=== PATIENT | female | born 1965 | race Caucasian/White ===

== ENCOUNTER 2018-06-10 10:11 | Outpatient (CLI) | payer MEDICAID, SELFPAY ==
[2018-06-10 10:51] LABS: Abs Immature Grans 0.03 k/cumm (0.0-0.09); Absolute Basophil Count 0.05 k/cumm (0.0-0.2); Absolute Eosinophil Count 0.12 k/cumm (0.0-0.7); Absolute Monocyte Count 1.05 k/cumm (0.11-0.7); Absolute Neutrophil Count 5.13 k/cumm (1.2-6.7); Basophils % 0.5; Eosinophils % 1.2; HCT 43.2 % (36.0-46.0); HGB 14.8 g/dL (12.0-15.5); Immature Grans % 0.3; Lymphocytes % 36.7; Mean Corp. HGB Concentration 34.3 g/dL (32.0-36.0); Mean Corpuscular Hemoglobin 28.6 pg (27.0-33.0); Mean Corpuscular Volume 83.4 fL (80-95); Mean Platelet Volume 9.8 fL (8.0-11.0); Monocytes % 10.4; Neutrophils % 50.9; Platelet Count 377 x1000/uL (130-400); RBC 5.18 m/cumm (4.00-5.20); RBC Distribution Width 14.8 % (11.7-14.6); White Blood Cell Count 10.08 k/cumm (4.4-10.8)
[2018-06-10 13:12] LABS: Anion Gap 13.1 mmol/L (3-11); BUN 13 mg/dL (7-18); CO2 26.9 mmol/L (21.0-32.0); CREATININE 0.84 mg/dL (0.55-1.02); Calcium 9.5 mg/dL (8.5-10.1); Chloride 100 mmol/L (98-107); Cholesterol 189 mg/dL (50-200); Glucose 67 mg/dL (70-100); HDL Cholesterol 68 mg/dL (40-60); LDL CHOLESTEROL 101 mg/dL (<100); Potassium 3.9 mmol/L (3.5-5.1); Sodium 140 mmol/L (136-145); Triglyceride 52 mg/dL (30-150)
== END 2018-06-10 10:31 ==
PROVIDERS: PCP Nurse Practitioner Family; Visit Provider Nurse Practitioner Family
DX: I10 Essential (primary) hypertension (principal); D72.829 Elevated white blood cell count, unspecified; E78.5 Hyperlipidemia, unspecified
CPT/HCPCS: 36415; 80048; 80061; 83721; 85025

== ENCOUNTER 2018-06-27 01:07 | Outpatient (CLI) | payer MEDICAID, SELFPAY ==
--- NOTE | 2018-06-27 15:00 | DI.MAMMO_ITS ---
SYMPTOM/DIAGNOSIS: SCREENING, Z12.31 MAMMOGRAMS: Mammograms were interpreted according to the usual protocol including computer analysis with CAD system, tomosynthesis and C view imaging. Comparison is made with 2016. The breasts are composed of heterogeneously dense fibroglandular tissue, breast density, Category C. No suspicious masses or suspicious microcalcifications are seen. There has been no significant change. IMPRESSION: Category 1C, negative mammogram. Yearly screening mammography is recommended. [facility] ASSESSMENT OF FINDINGS: Negative. Category 1. Patient will receive a letter notifying them of these results. Bi-RADS category C. The breasts are heterogeneously dense, which may obscure small masses.
== END 2018-06-27 01:27 ==
PROVIDERS: PCP Nurse Practitioner Family; Visit Provider Nurse Practitioner Family
DX: Z12.31 Encounter for screening mammogram for malignant neoplasm of breast (principal)
CPT/HCPCS: 77063; 77067

== ENCOUNTER 2018-12-30 07:00 | Outpatient (REF) | payer MEDICAID, SELFPAY ==
[2019-01-07 11:25] LABS: Fecal Immunochemical Test Negative (Negative)
== END 2018-12-30 07:20 ==
LOC: LBN 07:00
PROVIDERS: PCP Nurse Practitioner Family; Visit Provider Nurse Practitioner Family
DX: E87.6 Hypokalemia (principal); I10 Essential (primary) hypertension; Z12.11 Encounter for screening for malignant neoplasm of colon
CPT/HCPCS: 82274

== ENCOUNTER 2019-06-12 19:30 | Outpatient (REF) | payer MEDICAID, SELFPAY ==
[2019-06-12 19:21] LABS: Abs Immature Grans 0.04 k/cumm (0.0-0.09); Absolute Basophil Count 0.04 k/cumm (0.0-0.2); Absolute Eosinophil Count 0.16 k/cumm (0.0-0.7); Absolute Lymphocyte Count 3.97 k/cumm (1.2-3.4); Absolute Monocyte Count 1.02 k/cumm (0.11-0.7); Basophils % 0.3; Eosinophils % 1.2; HCT 45.7 % (36.0-46.0); HGB 15.8 g/dL (12.0-15.5); Immature Grans % 0.3; Lymphocytes % 30.7; Mean Corp. HGB Concentration 34.6 g/dL (32.0-36.0); Mean Corpuscular Hemoglobin 28.7 pg (27.0-33.0); Mean Corpuscular Volume 82.9 fL (80-95); Mean Platelet Volume 10.3 fL (8.0-11.0); Monocytes % 7.9; Neutrophils % 59.6; Platelet Count 342 x1000/uL (130-400); RBC 5.51 m/cumm (4.00-5.20); RBC Distribution Width 15.2 % (11.7-14.6); White Blood Cell Count 12.93 k/cumm (4.4-10.8)
[2019-06-12 19:23] LABS: C-Reactive Protein 0.58 mg/dL (0.0-0.3)
[2019-06-12 19:38] LABS: Absolute Neutrophil Count 7.71 k/cumm (1.2-6.7)
[2019-06-12 20:42] LABS: ESR 33 mm/hr (0-30)
== END 2019-06-12 19:50 ==
LOC: LBN 19:30
PROVIDERS: PCP Nurse Practitioner Family; Visit Provider Family Medicine
DX: G45.3 Amaurosis fugax (principal)
CPT/HCPCS: 85652; 85025; 86140

== ENCOUNTER 2019-07-03 01:18 | Outpatient (CLI) | payer MEDICAID, SELFPAY ==
--- NOTE | 2019-07-03 12:59 | DI.US_ITS ---
EXAM: US CAROTID CLINICAL HISTORY: Transient loss of vision G45.3 AMAUROSIS FUGAX TECHNIQUE: Ultrasound performed using standard protocol. COMPARISON: No exams were available for comparison FINDINGS: There is minimal calcific plaque in the common carotid bulbs. The velocity measurements obtained wer e within the normal range. There is no visible stenosis. Vertebral arteries show antegrade flow. A 1.2 centimeter hypoechoic nodule is detected in the left thyroid. IMPRESSION: No evidence of significant internal carotid artery stenosis.
== END 2019-07-03 01:38 ==
PROVIDERS: PCP Nurse Practitioner Family; Visit Provider Family Medicine
DX: G45.3 Amaurosis fugax (principal); H53.129 Transient visual loss, unspecified eye; E04.1 Nontoxic single thyroid nodule
CPT/HCPCS: 93880

== ENCOUNTER 2019-07-04 00:48 | Outpatient (CLI) | payer MEDICAID, SELFPAY ==
--- NOTE | 2019-07-04 10:56 | DI.US_ITS ---
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 amaurosis fugax of right eye. G45.3 Amaurosis fugax Conclusion Left Ventricle : The left ventricle is normal size. The left ventricular systolic function is normal. The left ventricular ejection fraction is within the normal range. There is normal left ventricular wall thickness. There is normal LV segmental wall motion. The left ventricular diastolic function is normal. LVEF is estimated to be 60-65%. Right Ventricle : The right ventricle is normal size. The right ventricular systolic function is norm al. Atria : The left atrium size is normal. The right atrium size is normal. Aortic Valve : Aortic valve is trileaflet. There is mild sclerosis without stenosis. No aortic regurg itation is present. Mitral Valve : Mitral valve leaflets are mildly thickened. Mild mitral regurgitation. No evidence of mitral valve stenosis. Tricuspid Valve : Tricuspid valve is not well visualized. There is no tricuspid valve regurgitation n oted. Great Vessels : IVC is normal in size and collapses >50% with inspiration. There is none of tricuspi d regurgitation to estimate RVSP. There is no cardiac source of emboli identified. There is no prior echocardiogram available for comparison. Wall motion Left Ventricle The left ventricle is normal size. The left ventricular systolic function is normal. The left ventric ular ejection fraction is within the normal range. There is normal left ventricular wall thickness. T here is normal LV segmental wall motion. The left ventricular diastolic function is normal. LVEF is e stimated to be 60-65%. Right Ventricle The right ventricle is normal size. The right ventricular systolic function is normal. Atria The left atrium size is normal. The right atrium size is normal. Aortic Valve Aortic valve is trileaflet. There is mild sclerosis without stenosis. No aortic regurgitation is pres ent. Mitral Valve Mitral valve leaflets are mildly thickened. No evidence of mitral valve stenosis. Mild mitral regurgi tation. Tricuspid Valve Tricuspid valve is not well visualized. There is no tricuspid valve regurgitation noted. Pulmonic Valve Pulmonic valve is not well visualized. Great Vessels The aortic root is normal in size. The ascending aorta is normal in size. IVC is normal in size and c ollapses >50% with inspiration. There is none of tricuspid regurgitation to estimate RVSP. Pericardium There is no pericardial effusion. 2D Dimensions IVSd 0.75 cm F: 0.6-1.0 LV EDV A2C 51.50 mL PWd 0.75 cm F: 0.6 - 1.0 LV EDV A4C 41.30 mL LVDd 4.35 cm F: 3.8 - 5.2 LA Volume Index A2C 20.07 mL/m2 LVDs 2.90 cm F: 2.2 - 3.5 LA Volume Index A4C 14.08 mL/m2 Aortic Root 2.40 cm F: 2.7 - 3.3 LA Volume Index Biplane 16.95 mL/m2 RA Area A4C 9.65 cm2 LA Area A4C 10.51 cm2 LVOT 1.75 cm (M/F) 1.5-2.5 LA Area A2C 12.66 cm2 Ascending Aorta 2.78 cm F: 2.3 - 3.1 EF AP4 64.65 % LVEF (Teich) 62.77 % EF AP2 56.89 % LVEF (Cosme's) 60.87 % F: 54 - 74 EF BP 60.87 % LV Volume 41.40 mL F: 46 - 106 LV Volume Index 26.36 mL/m2 F: 29 - 61 FS 33.70 % LV Diastology E/A Ratio 0.9 MED E' 0.13 (>0.07 m/s) LV E/e MED 5.05 (<14) LAT E' 0.10 (>0.1 m/s) LV E/e LAT 6.70 (<14) Aortic Valve LVOT Area 2.50 cm2 LVOT Vmax 1.08 m/s LVOT Mean Ming. 0.70 m/s LVOT Peak Gr. 4.7 mmHg LVOT Mean Gr. 2.3 mmHg AoV Area/ BSA (Vmax) 0.99 cm2/m2 LVOT VTI 0.200 m AoV Vmax 1.74 (0.5-1.3 m/s) ABDIEL Mean Ming. Index 0.95 cm2/m2 AoV Mean Ming. 1.17 m/s AoV Peak Grad 12.0 mmHg AoV Mean Grad 6.1 (<5 mmHg) AoV VTI 0.374 (0.18-0.25 m) AoV Area VTI 1.54 (2.5-4.5 cm2) AoV Area/ BSA (VTI) 0.98 cm/m2 Mitral Valve MV E Max Ming. 0.68 (0.4-1.3 m/s) MV A Velocity 0.75 (0.4-1.3 m/s) E/A Ratio 0.87 MV Decel. Time 199.40 (160-240 msec) MV Regurg Volume 0.00 mL MV PHT 57.83 msec MV RF 0.00 % MVA PHT 3.80 cm2 Pulmonary Valve RVOT Peak Gr. 2.50 mmHg RVOT Peak Ming. 0.79 m/s RVOT Mean Gr. 1.30 mmHg RVOT VTI 0.15 m Tricuspid Valve RAP Estimate 3.00 mmHg RVSP 3.00 mmHg
== END 2019-07-04 01:08 ==
PROVIDERS: PCP Nurse Practitioner Family; Visit Provider Family Medicine
DX: G45.3 Amaurosis fugax (principal); H53.129 Transient visual loss, unspecified eye; I35.8 Other nonrheumatic aortic valve disorders; I10 Essential (primary) hypertension; E78.5 Hyperlipidemia, unspecified
CPT/HCPCS: 93306

== ENCOUNTER 2019-08-19 10:37 | Emergency (ER) | payer MEDICAID, SELFPAY ==
[2019-08-19 10:42] VITALS: BP 133/75; PULSE 96; RESP 16; TEMP 36.4; O2SAT 95
--- NOTE | 2019-08-19 10:46 | ED.GENADUL_ITS ---
Discharge Plan Disposition Patient Disposition: HOME Condition: Improving Discharge Details Chief Complaint: EarProblem Clinical Impression: Cerumen impaction Primary Care Provider: Lindsay Herring ED Provider: Atilio Williamson Home Meds and New Rx's Prescriptions: Continued hydrochlorothiazide 12.5 mg tablet 12.5 mg PO DAILY Qty: 90 RF: 3 Shingrix (PF) 50 mcg/0.5 mL suspension for reconstitution 50 mcg IM .COMPLEX Qty: 1 RF: 1 primidone 50 mg tablet 50 mg PO HS Qty: 90 RF: 3 topiramate [Topamax] 100 mg tablet 100 mg PO HS Qty: 90 RF: 3 potassium chloride 10 mEq tablet extended release 10 meq PO DAILY Qty: 90 RF: 3 Prilosec OTC 20 mg tablet,delayed release (DR/EC) 20 mg PO DAILY Qty: 90 RF: 3 atorvastatin 20 mg tablet 20 mg PO DAILY Qty: 90 RF: 3 Discharge Instructions Instructions: Cerumen Impaction (ED) Additional Instructions: We will ask our care management team to get you a follow-up appointment with Radha Herring in clinic for recheck. May use [id number] earwax drops to completely evacuate your ears. Continue your regular medications. Return for any acute concern. Medical Decision Making 53-year-old female presents from home complaining of decreased hearing in the right ear for 4 days. Exam reveals a large cerumen impaction. The ear was irrigated with production of cerumen. Patient with persistent diminished hearing of the right ear. Discussed with the patient keeping the ears clean of cerumen and that we will arrange an outpatient follow-up in clinic for recheck of hearing. She has no pain, fever, headache. She is stable and appropriate to discharge to home at this time. HPI General Mode of arrival: ambulatory . Date/Time Provider Initiated Documentation: 08/19/19 10:38 . Limitations to Documentation: no limitations . Information obtained by: patient . History of Present Illness 53 year old F presents to the emergency department with the chief complaint of Right ear cannot hear, described as moderate, and is localized to the head. Patient reports no radiation. Patient started experiencing this day(s) and it has been constant. No relieving factors improve symptom(s), No exacerbating factors reported . Patient notes denies fever/chills. Patient did receive the following treatments prior to arrival, none Related Data Home Medications Medication Instructions Recorded Confirmed potassium chloride 10 mEq 10 meq PO DAILY #90 tab-cap 10/12/18 08/19/19 tablet,extended release hydrochlorothiazide 12.5 mg tablet 12.5 mg PO DAILY #90 tab-cap 12/21/18 08/19/19 varicella-zoster gE-AS01B (PF) 50 50 mcg IM .COMPLEX #1 each 12/21/18 08/19/19 mcg/0.5 mL IM susp, kit omeprazole magnesium 20 mg 20 mg PO DAILY #90 tab-cap 04/05/19 08/19/19 tablet,delayed release primidone 50 mg tablet 50 mg PO HS #90 tab-cap 05/15/19 08/19/19 topiramate 100 mg tablet 100 mg PO HS #90 tab 05/15/19 08/19/19 atorvastatin 20 mg tablet 20 mg PO DAILY #90 tab-cap 05/17/19 08/19/19 Previous Rx's Medication Instructions Recorded potassium chloride 10 mEq 10 meq PO DAILY #90 tab-cap 10/12/18 tablet,extended release hydrochlorothiazide 12.5 mg tablet 12.5 mg PO DAILY #90 tab-cap 12/21/18 varicella-zoster gE-AS01B (PF) 50 50 mcg IM .COMPLEX #1 each 12/21/18 mcg/0.5 mL IM susp, kit omeprazole magnesium 20 mg 20 mg PO DAILY #90 tab-cap 04/05/19 tablet,delayed release primidone 50 mg tablet 50 mg PO HS #90 tab-cap 05/15/19 topiramate 100 mg tablet 100 mg PO HS #90 tab 05/15/19 atorvastatin 20 mg tablet 20 mg PO DAILY #90 tab-cap 05/17/19 Allergies Allergy/AdvReac Type Severity Reaction Status Date / Time ibuprofen Allergy Mild Hives Verified 08/19/19 10:44 sertraline AdvReac Intermediate Nightmares Verified 08/19/19 10:44 General Stated Complaint: EarProblem SHITAL: 4 Review of Systems Narrative: Similar to in the past. No fever or recent illness. [facility] Medical History Abnormal auditory perception of left ear (Chronic 09/10/16) Anxiety (Chronic) ASCUS with positive high risk HPV (Resolved 01/11/17) Chronic daily headache (Chronic 09/15/16) COPD (chronic obstructive pulmonary disease) (Chronic) a. PFTs in 02/2014 showed mild obstructive disease with no significant bronchodilator response Degenerative arthritis of left knee (Chronic 09/26/14) Essential tremor (Chronic 02/19/16) GERD (gastroesophageal reflux disease) (Chronic) HSIL (high grade squamous intraepithelial lesion) on Pap smear of cervix (Chronic 04/10/16) +HPV HTN (hypertension) (Chronic) Hyperlipidemia (Chronic 08/26/01) 05/2018 labs: adequate response in the lipid panel, continue current moderate intensity statin therapy Hypokalemia (Chronic) Chronic K+ supplement Lactose intolerance (Chronic 12/19/13) Migraine headache without aura (Chronic) Moderate dysplasia of cervix (JUSTINO II) (Acute 04/30/16) Pneumothorax (Resolved 10/07/09) Postmenopausal (Chronic) LMP 2009 Resting tremor (Chronic) Tobacco use disorder (Chronic) Social History Smoking/Tobacco Use Status: Current every day Alcohol Intake: never Drug use: Never Caregiver/Support person: No Household members: significant other Housing: apartment Number of Children: 4 Communication Needs: None Pets and animals: Yes Pets and animals: dog(s) and bird(s) Current gender identity: female What type of physical activity do you participate in: none Seatbelt use: always Water heater temp set <120 deg: Yes Working smoke detector in home: Yes Fire extinguisher in home: Yes Carbon monox detector in home: Yes Additional Social history: She lives with her BF and her son Costa. 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 She smokes 1/4 ppd. No ETOH since 2011. No illicit drug use. Exam Narrative Exam Narrative: GEN: awake, alert, oriented 3. Pleasant, well groomed, interactive. HEAD: Normocephalic, atraumatic ENT: Mucous membranes moist, oropharynx unremarkable, right tympanic membrane is occluded by cerumen, external ear exam unremarkable EYES: PERRL, EOMI NECK: Full ROM, no FATUMA, no menigismus Neuro: Grossly normal neurologic exam, conversant, interactive. Psych: Speech fluent, thoughts congruent, affect normal Course Vital Signs Vital signs: Vital Signs Temperature 36.4 C L 08/19/19 10:42 Pulse 96 H 08/19/19 10:42 Respiratory Rate 16 08/19/19 10:42 Blood Pressure 133/75 08/19/19 10:42 Pulse Oximetry 95 08/19/19 10:42 Temperature 36.4 C L 08/19/19 10:42 Temperature Source Skin 08/19/19 10:42 Pulse 96 H 08/19/19 10:42 Respiratory Rate 16 08/19/19 10:42 Respiratory Effort Non-Labored 08/19/19 10:42 Blood Pressure 133/75 08/19/19 10:42 Blood Pressure Position Sitting 08/19/19 10:42 Pulse Oximetry 95 08/19/19 10:42 Oxygen Delivery Method Room Air 08/19/19 10:42 Oxygen Flow Rate 0 08/19/19 10:42 Pain Level 0 08/19/19 10:42
--- NOTE | 2019-08-19 11:29 | NUR.NOTE ---
Nursing Note: Right ear irrigated three times with room temp water till ear canal was clear. PT reports continued hearing difficulty. Pt DC with ENT follow up care to address hearing difficulty.
--- NOTE | 2019-08-19 15:02 | NUR.NOTE ---
Nursing Note: Faxed to PCP for follow up. Radha Guajardo.
== END 2019-08-19 11:35 | disposition home or self-care (01) ==
LOC: ER 11:04
PROVIDERS: Emergency Provider Emergency Medicine; PCP Nurse Practitioner Family
DX: H61.21 Impacted cerumen, right ear (principal); I10 Essential (primary) hypertension; J44.9 Chronic obstructive pulmonary disease, unspecified; F17.210 Nicotine dependence, cigarettes, uncomplicated
CPT/HCPCS: 69209; 99282; 99283

== ENCOUNTER 2019-10-13 13:48 | Outpatient (REF) | payer MEDICAID, SELFPAY ==
--- NOTE | 2019-10-13 13:00 | PAPFT_PTH ---
PATIENT: Ashleigh Paiz LOC: [facility] U#:[id number] AGE/SX: 53/F ROOM: RE10/13/[address]: Jennifer Salmon : 1965 BED: DIS: 10/13/2019 SPEC #: [id number] RECD: 10/13/19 16:35 STATUS: ESTELLA WELSH #: [id number] PINO: 10/13/19 13:[address]: Jennifer Salmon DEPT: [facility] Cytology RECD BY: Kervin Garcia ENTERED: 10/13/19 16:36 SP TYPE: PAPFT OTHR DR: Lindsay Herring, FRANCISCO JAVIER Tissues: 1 - CX/ENDOCX FOR PAP SMEARS Procedures: PAP THIN PREP/[facility] Screening Comments: [id number]
== END 2019-10-13 14:08 ==
LOC: LBN 13:48
PROVIDERS: PCP Nurse Practitioner Family; Visit Provider Obstetrics & Gynecology Gynecology
DX: Z12.4 Encounter for screening for malignant neoplasm of cervix (principal)
CPT/HCPCS: 88142

== ENCOUNTER 2020-01-09 14:29 | Outpatient (CLI) | payer MEDICAID, SELFPAY ==
[2020-01-09 15:54] LABS: Anion Gap 10.9 mmol/L (3-11); BUN 10 mg/dL (7-18); CO2 27.1 mmol/L (21.0-32.0); CREATININE 0.84 mg/dL (0.55-1.02); Calcium 9.5 mg/dL (8.5-10.1); Calculated LDL 119 mg/dL (<100); Chloride 102 mmol/L (98-107); Cholesterol 199 mg/dL (<200); Glucose 80 mg/dL (74-106); HDL Cholesterol 54 mg/dL (40-60); Potassium 3.8 mmol/L (3.5-5.1); Sodium 140 mmol/L (136-145); Triglyceride 133 mg/dL (<150)
== END 2020-01-09 14:49 ==
PROVIDERS: PCP Nurse Practitioner Family; Visit Provider Nurse Practitioner Family
DX: E78.5 Hyperlipidemia, unspecified (principal); I10 Essential (primary) hypertension; E87.6 Hypokalemia
CPT/HCPCS: 36415; 80048; 80061

== ENCOUNTER 2020-08-21 01:11 | Outpatient (CLI) | payer MEDICAID, SELFPAY ==
--- NOTE | 2020-08-21 10:15 | DI.RAD_ITS ---
EXAM: XR CERVICAL SPINE COMP 4-5V CLINICAL HISTORY: Widespread chronic spinal pain suspect fibromyalgia,g89.29. TECHNIQUE: 2D digital imaging was performed. COMPARISON: CR CERVICAL SP. LIMITED (TRAUMA) from 12/14/2016 FINDINGS: There is no evidence of fracture, listhesis, nor offset of the spinal laminar line. All of the disc spaces continue to exhibit normal height and appear unchanged from 2017. There are mild degenerative changes in the facet joints. On the oblique views there are no Luschka joint osteophyte encroachmen t upon the exiting neural foramina. There are no cervical ribs. Mild calcification in the right jonnathan e of the neck is noted which probably indicates atherosclerotic involvement of the carotid artery. The cervical lordotic curve is maintained. No osseous lesions. IMPRESSION: As above. No significant radiographic change compared to 2017. DATA REPOSITORY: RADIATION DOSE DELIVERED:
--- NOTE | 2020-08-21 10:15 | DI.RAD_ITS ---
EXAM: XR LUMBAR SPINE COMPLETE CLINICAL HISTORY: Widespread chronic spinal pain suspect fibromyalgia,m54.9,dorsalgia. TECHNIQUE: 2D digital imaging was performed. COMPARISON: CR XR THORACIC SPINE COMPLETE from 08/21/2020 FINDINGS: There is transitional anatomy. There are 6 non rib bearing vertebrae. This implies presence of a tr ansitional thoracolumbar vertebra. There is no evidence of fracture, listhesis, or pars interarticularis defects. All of the disc space s exhibit normal height. Mild degenerative changes are evident in the facet joints. Is no scoliosis . No ominous osseous lesions. Sacroiliac joints appear unremarkable. There is calcification eviden t in the abdominal aorta and common iliac arteries. IMPRESSION: No fracture. No listhesis. No disc space narrowing. Significant calcification in the abdominal aorta and iliac arteries indicating atherosclerotic involv ement in this 54-year-old patient. DATA REPOSITORY: RADIATION DOSE DELIVERED:
--- NOTE | 2020-08-21 10:15 | DI.RAD_ITS ---
EXAM: XR THORACIC SPINE COMPLETE CLINICAL HISTORY: widepsread chronic spinal pain,suspect fibromyalgia,back pain,m54.9. TECHNIQUE: 2D digital imaging was performed. COMPARISON: CR CHEST 2 VIEWS PA,LAT from 05/17/2017 FINDINGS: There is no evidence of compression fracture nor listhesis in the thoracic spinal column. There is m ild scoliosis convex left in the lower thoracic spinal column. There is no abnormal widening of the paraspinal lines. No ominous osseous lesions evident. IMPRESSION: DATA REPOSITORY: RADIATION DOSE DELIVERED:
== END 2020-08-21 01:12 ==
LOC: DI 01:11
PROVIDERS: PCP Nurse Practitioner Family; Visit Provider Nurse Practitioner Family
DX: M54.2 Cervicalgia (principal); M54.6 Pain in thoracic spine; M54.5 Low back pain; G89.29 Other chronic pain
CPT/HCPCS: 72050; 72072; 72110

== ENCOUNTER 2020-08-30 02:35 | Outpatient (CLI) | payer MEDICAID, SELFPAY ==
[2020-08-30 13:31] LABS: Abs Immature Grans 0.06 10^3/uL (0.0-0.06); HCT 44.3 % (36.0-46.0); HGB 15.5 g/dL (11.2-15.7); MCH 28.8 pg (27.0-33.0); MCV 82.2 fL (80-95); MPV 9.8 fL (8.0-11.0); Nucleated RBC 0 %; Platelet Count 402 10^3/uL (130-400); RBC 5.39 10^6/uL (3.93-5.22); RDW 14.4 % (11.7-14.6); RDW-SD 42.8 fL; WBC 14.25 10^3/uL (4.4-10.8)
[2020-08-30 13:56] LABS: Absolute Basophil Count 0.14 10^3/uL (0.0-0.2); Absolute Eosinophil Count 0.29 10^3/uL (0.0-0.7); Absolute Lymphocyte Count 4.99 10^3/uL (1.2-3.4); Absolute Monocyte Count 0.71 10^3/uL (0.1-0.8); Absolute Neutrophil Count 8.12 10^3/uL (1.2-6.7); Atypical Lymphocytes % 5
[2020-08-30 13:57] LABS: Diff Comment Manual Differential; RBC Morphology Normal
[2020-08-30 14:12] LABS: Creatine Kinase 91 U/L (26-192); TSH (W/Ref FT4) 1.17 uIU/mL (0.36-3.74)
[2020-08-30 19:10] LABS: ESR 56 mm/hr (<or=30)
== END 2020-08-30 02:36 | disposition home or self-care (01) ==
LOC: LBO 02:35
PROVIDERS: PCP Nurse Practitioner Family; Visit Provider Nurse Practitioner Family
DX: M79.7 Fibromyalgia (principal); M54.89 Other dorsalgia
CPT/HCPCS: 36415; 82550; 85652; 84443; 85025; 86140

== ENCOUNTER 2020-10-11 03:27 | Outpatient (CLI) | payer MEDICAID, SELFPAY ==
--- NOTE | 2020-10-11 08:24 | DI.CT_ITS ---
EXAM: CT THORAX ABD/PEL CTA TECHNIQUE: CT angiography of the chest, abdomen and pelvis was performed with bolus infusion of 100 cc of Omnipaque 350. Axial CT angiography was performed with multi-slice acquisition and multi-planar and/or 3D reconstruc tions. COMPARISON: No exams were available for comparison FINDINGS: There are severe pulmonary emphysematous changes and apparent fibrotic changes are noted as well part icularly in the lung bases. Calcified granulomas are noted. No pleural effusion. The pulmonary arterial circulation is inadequately opacified to exclude embolus period. No thoracic aortic dissection or aneurysm. Major branches of the thoracic aorta appear norm al. No pleural effusion. No mediastinal or hilar adenopathy. Tracheobronchial tree appears intact. No focal hepatic or renal abnormality seen. Gallbladder and bile ducts are CT normal. Pancreas is unr emarkable. Spleen is unremarkable. The left adrenal gland is unremarkable. Right adrenal gland is difficult to visualize with certainty , however there is suspicion of a 2 cm right adrenal mass of intermediate attenuation. Adrenal kat col CT suggested for further evaluation. The abdominal aorta is of normal diameter with a moderately calcified wall. There is a web like luce ncy extending across the aortic lumen at the L2-3 disc level which could represent a chronic dissecti on or chronic atheromatous change. There is normal filling of the lumen of the distal abdominal aort a. The common, internal, and external iliac arteries are of normal diameter.. Major branches of the abdominal aorta appear normal including the renal arteries, celiac trunk, and superior and inferior mesenteric arteries. No abdominal or pelvic adenopathy. Normal appendix. No significant abdominal wall hernia. No focal angel wel pathology. IMPRESSION: No evidence of acute abnormality of the chest, abdomen or pelvis. There is a possible chronic dissection or severe atheromatous change of the inferior portion of the a bdominal aorta at the L2-3 disc level, remaining luminal diameter is roughly 6 millimeters as opposed to 13 millimeter diameter of the distal aorta. Please correlate clinically regarding any acute or c hronic clinical suggestion of arterial insufficiency of the lower extremities. RADIATION DOSE DELIVERED: 852.81mGy.cm Total DLP 852.81mGy.cm Total DLP DATA REPOSITORY: All CT scans at this facility are submitted to the National Radiology Data Registry (NRDR) Dose Index Registry (DIR) with the [place] [employer] (A[employer]). RADIATION OPTIMIZATION: All CT scans at this facility use at least one of these dose optimization te chniques: automated exposure control; mA and/or kV adjustment per patient size (includes targeted exa ms where dose is matched to clinical indication); or iterative reconstruction.
[2020-10-11 14:17] LABS: CREATININE 0.9 mg/dL (0.55-1.02)
[2020-10-11] MEDS: Omnipaque 350 MG/ML 100 ML BTL IJ (15:01)
[2020-10-11] MEDS: Normal Saline - Diluent 50 ML VIAL IV (15:02)
== END 2020-10-11 03:47 ==
PROVIDERS: PCP Nurse Practitioner Family; Visit Provider Nurse Practitioner Family
DX: I70.0 Atherosclerosis of aorta (principal); I70.8 Atherosclerosis of other arteries; J98.4 Other disorders of lung; J43.8 Other emphysema; D35.01 Benign neoplasm of right adrenal gland
CPT/HCPCS: 71275; 74177; 82565; J3490

== ENCOUNTER 2020-12-19 00:37 | Emergency (ER) | payer MEDICAID, SELFPAY ==
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
[2020-12-19 00:35] VITALS: BP 136/84; PULSE 82; RESP 18; TEMP 36.6; O2SAT 98
--- NOTE | 2020-12-19 00:45 | DI.RAD_ITS ---
Exam(s) XR ANKLE RT COMPLETE EXAM: XR ANKLE RT COMPLETE CLINICAL HISTORY: trauma. TECHNIQUE: 2D digital imaging was performed. COMPARISON: No exams were available for comparison FINDINGS: There is abundant soft tissue swelling laterally. There is an avulsion fracture off the tip of the f ibula-lateral malleolus. There is no widening of the mortise. Medial malleolus and posterior malleo gregory appear intact as does the talar dome. Incidentally noted in the distal aspect of the image are fractures of the 4th and 5th metatarsals. IMPRESSION: DATA REPOSITORY: RADIATION DOSE DELIVERED:
--- NOTE | 2020-12-19 01:00 | DI.RAD_ITS ---
Exam(s) XR FOOT RT COMPLETE EXAM: XR FOOT RT COMPLETE CLINICAL HISTORY: trauma. TECHNIQUE: 2D digital imaging was performed. COMPARISON: No exams were available for comparison FINDINGS: There is a comminuted fracture of the 5th metatarsal. Distal most fracture lines are at the level of the neck and proximal fracture lines are at the midshaft level. There is also an adjacent nondispla julito oblique fracture at the midshaft of the 4th metatarsal. No other fractures identified. No abnor mal diastasis of the main Lisfranc joint. IMPRESSION: DATA REPOSITORY: RADIATION DOSE DELIVERED:
[2020-12-19] MEDS: HYDROcodone 5/Acetaminophen 325 TAB PO (01:38)
--- NOTE | 2020-12-19 02:17 | DI.VRAD_ITS ---
PROCEDURE INFORMATION: Exam: XR Right Ankle Exam date and time: 12/19/2020 12:49 AM Age: 55 years old Clinical indication: Other: Trauma fall pain on the lateral ankle side the most TECHNIQUE: Imaging protocol: XR Right ankle. Views: 3 or more views. COMPARISON: CR RIGHT KNEE LIMITED 1 OR 2 VIEW 09/26/2014 10:15 AM FINDINGS: Bones/joints: Fracture at the tip of the lateral malleolus. May reflect an avulsion fracture involving a talofibular ligament. 4th and 5th metatarsal fractures identified. Equivocal cuboid fracture. Soft tissues: Prominent lateral soft tissue swelling. IMPRESSION: 1. Prominent lateral soft tissue swelling. 2. Fracture at the tip of the lateral malleolus. May reflect an avulsion fracture involving a talofibular ligament. 3. 4th and 5th metatarsal fractures identified. 4. Equivocal cuboid fracture. Dictated and Authenticated by: Rachid Nathan MD. Ordering:ALEJANDRO Boone MD
--- NOTE | 2020-12-19 02:18 | DI.VRAD_ITS ---
PROCEDURE INFORMATION: Exam: XR Right Foot Exam date and time: 12/19/2020 1:12 AM Age: 55 years old Clinical indication: Injury or trauma; Fracture, traumatic; Other: Trauma fall right foot pain on the lateral side the most; Additional info: Trauma fall right foot pain on mid and lateral side . TECHNIQUE: Imaging protocol: XR Right foot. Views: 3 or more views. COMPARISON: 1. CR XR ANKLE RT COMPLETE 12/19/2020 1:10 AM 2. CR RIGHT KNEE LIMITED 1 OR 2 VIEW 09/26/2014 10:15 AM FINDINGS: Bones/joints: Comminuted 5th metatarsal fracture. Hairline 4th metatarsal fracture. Calcifications adjacent to the cuboid appear to reflect soft tissue calcifications likely associated with the peroneal tendons rather than a cuboid fracture. Soft tissues: See Bones/joints finding. IMPRESSION: 1. Comminuted 5th metatarsal fracture. 2. Hairline 4th metatarsal fracture. 3. Calcifications adjacent to the cuboid appear to reflect soft tissue calcifications likely associated with the peroneal tendons rather than a cuboid fracture. Dictated and Authenticated by: Rachid Nathan MD. Ordering:ALEJANDRO Boone MD
[2020-12-19 02:55] VITALS: BP 124/72; PULSE 72; RESP 16; O2SAT 98
== END 2020-12-19 03:05 | disposition home or self-care (01) ==
LOC: ER 02:33
PROVIDERS: Emergency Provider Emergency Medicine; PCP Nurse Practitioner Family
DX: S82.61XA Displaced fracture of lateral malleolus of right fibula, initial encounter for closed fracture (principal); S92.351A Displaced fracture of fifth metatarsal bone, right foot, initial encounter for closed fracture; W10.8XXA Fall (on) (from) other stairs and steps, initial encounter
CPT/HCPCS: 29515; 99284; 73610; 73630; 99283

== ENCOUNTER 2021-01-14 11:06 | Outpatient (CLI) | payer MEDICAID, SELFPAY ==
--- NOTE | 2021-01-14 10:45 | DI.RAD_ITS ---
Exam(s) XR FOOT RT COMPLETE EXAM: XR FOOT RT COMPLETE INDICATION: right foot fracture. COMPARISON: CR,XR XR FOOT RT COMPLETE from 12/19/2020 TECHNIQUE: 2D digital imaging was performed. FINDINGS: There has been no change in the alignment of the 4th and 5th metatarsal fractures. The bones appear osteopenic from disuse. No new fractures are seen. DATA REPOSITORY: RADIATION DOSE DELIVERED:
--- NOTE | 2021-01-14 10:45 | DI.RAD_ITS ---
Exam(s) XR ANKLE RT COMPLETE EXAM: XR ANKLE RT COMPLETE INDICATION: right ankle fracture. COMPARISON: CR,XR XR ANKLE RT COMPLETE from 12/19/2020 TECHNIQUE: 2D digital imaging was performed. FINDINGS: There has been no change in the fracture at the tip of the lateral malleolus. Ankle mortise is not w idened. There is soft tissue swelling which is decreased when compared the previous exam. No talar dome defect. DATA REPOSITORY: RADIATION DOSE DELIVERED:
== END 2021-01-14 11:07 | disposition home or self-care (01) ==
LOC: DIORS 11:06
PROVIDERS: PCP Nurse Practitioner Family; Visit Provider Physician Assistant
DX: S92.901A Unspecified fracture of right foot, initial encounter for closed fracture (principal); S82.61XA Displaced fracture of lateral malleolus of right fibula, initial encounter for closed fracture; X58.XXXA Exposure to other specified factors, initial encounter
CPT/HCPCS: 73610; 73630

== ENCOUNTER 2021-02-17 12:01 | Outpatient (CLI) | payer MEDICAID, SELFPAY ==
--- NOTE | 2021-02-17 11:00 | DI.RAD_ITS ---
Exam(s) XR FOOT RT COMPLETE EXAM: XR FOOT RT COMPLETE CLINICAL HISTORY: follow up. TECHNIQUE: 2D digital imaging was performed. COMPARISON: CR XR FOOT RT COMPLETE from 01/14/2021 FINDINGS: Again noted is the previously described fracture lines in the 5th metatarsal extending from the midsh aft to involve the neck. There has been minimal healing. No further displacement. No nonuse osteop enia again evident. Amount of osteopenia is further progressed. The nondisplaced fracture of the adjacent 4th metatarsal is unchanged. No further displacement. There are no new additional fractures evident. No radiographic evidence of osteomyelitis. IMPRESSION: DATA REPOSITORY: RADIATION DOSE DELIVERED:
== END 2021-02-17 12:02 | disposition home or self-care (01) ==
LOC: DIORS 12:02
PROVIDERS: PCP Nurse Practitioner Family; Visit Provider Physician Assistant Surgical
DX: S92.351D Displaced fracture of fifth metatarsal bone, right foot, subsequent encounter for fracture with routine healing (principal); S92.341D Displaced fracture of fourth metatarsal bone, right foot, subsequent encounter for fracture with routine healing
CPT/HCPCS: 73630

== ENCOUNTER 2021-03-17 14:59 | Outpatient (CLI) | payer MEDICAID, SELFPAY ==
--- NOTE | 2021-03-17 14:30 | DI.RAD_ITS ---
Exam(s) XR FOOT RT COMPLETE EXAM: XR FOOT RT COMPLETE CLINICAL HISTORY: follow up. TECHNIQUE: 2D digital imaging was performed. COMPARISON: CR XR FOOT RT COMPLETE from 02/17/2021 FINDINGS: Healing fracture sites in the 4th and 5th metatarsals again noted. Fracture lines are still visible but there is no further displacement. Minimal further healing when compared to the prior study. No new additional fractures evident. No diastasis of the Lisfranc joint evident. IMPRESSION: DATA REPOSITORY: RADIATION DOSE DELIVERED:
== END 2021-03-17 15:00 | disposition home or self-care (01) ==
LOC: DIORS 14:59
PROVIDERS: PCP Nurse Practitioner Family; Referring Provider Nurse Practitioner Family; Visit Provider Physician Assistant Surgical
DX: S82.61XD Displaced fracture of lateral malleolus of right fibula, subsequent encounter for closed fracture with routine healing (principal); X58.XXXD Exposure to other specified factors, subsequent encounter
CPT/HCPCS: 73630

== ENCOUNTER 2021-08-15 13:46 | Outpatient (REF) | payer MEDICAID, SELFPAY ==
[2021-08-15 19:04] LABS: ALT 22 U/L (14-59); AST 13 U/L (15-37); Alkaline Phosphatase 147 U/L (46-116); Anion Gap 10.4 mmol/L (3-11); BUN 10 mg/dL (7-18); Bilirubin, Total 0.6 mg/dL (0.2-1.0); CO2 29.6 mmol/L (21.0-32.0); CREATININE 0.8 mg/dL (0.55-1.02); Calcium 9.5 mg/dL (8.5-10.1); Calculated LDL 120 mg/dL (<100); Chloride 98 mmol/L (98-107); Cholesterol 206 mg/dL (<200); Glucose 89 mg/dL (74-106); HDL Cholesterol 69 mg/dL (40-60); Magnesium 2.4 mg/dL (1.8-2.4); Potassium 3.6 mmol/L (3.5-5.1); Sodium 138 mmol/L (136-145); Total Protein 8.2 g/dL (6.4-8.2); Triglyceride 87 mg/dL (<150)
[2021-08-15 19:14] LABS: C-Reactive Protein 2.42 mg/dL (0.0-0.3)
== END 2021-08-15 13:47 | disposition home or self-care (01) ==
LOC: LBN 13:46
PROVIDERS: PCP Nurse Practitioner Adult Health; Visit Provider Nurse Practitioner Adult Health
DX: E78.5 Hyperlipidemia, unspecified (principal); E87.6 Hypokalemia; F17.200 Nicotine dependence, unspecified, uncomplicated; I10 Essential (primary) hypertension; I70.0 Atherosclerosis of aorta; Z51.81 Encounter for therapeutic drug level monitoring
CPT/HCPCS: 80053; 80061; 83735; 86140

== ENCOUNTER 2021-09-17 00:30 | Outpatient (CLI) | payer MEDICAID, SELFPAY ==
--- NOTE | 2021-09-17 14:40 | DI.CT_ITS ---
Exam(s) CT ABDOMEN PELVIS CTA EXAM: CT ABDOMEN PELVIS CTA CLINICAL HISTORY: F/U 09/2020 study--inf abd aorta abnL,RT ADRENAL MASS,R93.5,I70.0,. TECHNIQUE: Imaging Protocol: Axial computed tomography images with coronal and sagittal reformatted images were created and reviewed CONTRAST MATERIAL: Intravenous: Omnipaque 350 Contrast volume:100 ml Oral: None COMPARISON: CT CT THORAX ABD/PEL CTA from 10/11/2020 FINDINGS: AORTA: There is no evidence of abdominal aortic aneurysm.Maximum diameter of the abdominal aorta is 1 .4 cm. There is also no dilatation iliac arteries. There is, however, significant atherosclerotic i nvolvement of the aorta and iliac arteries. There is again noted a focal area of dissection in the upper abdominal aorta, unchanged from previous study of September 2020. This at approximately the L2-L3 disc space level. Celiac and superior mesenteric arteries patent and without significant ostial stenosis. No evidence of embolus in the SMA. Inferior mesenteric artery is also patent. No significant stenosis at the or igin of the renal arteries. At the level of the aortic bifurcation there is again noted a moderate focal stenosis at the origin o f the left common iliac artery. Both common iliac arteries are calcified and not enlarged. There is no tight stenosis at the junction of the common and external iliac arteries and the external iliac a rteries are patent as are the common femoral arteries. The internal iliac arteries are patent. No a neurysms. There are no ischemic appearing bowel loops. LIVER: There are no focal hepatic lesions nor dilatation of intrahepatic ducts. GALLBLADDER/BILIARY: No obvious gallbladder pathology. CBD is not dilated. PANCREAS: No evidence of pancreatic mass nor dilatation of the pancreatic duct. SPLEEN: Spleen is not enlarged. There are no intrasplenic lesions. Splenic and portal veins are nicole nt. ADRENALS: There is nodule in the right adrenal gland noted which measures 2 by 1 cm, unchanged. Mild thickening of the genu of the left adrenal gland is unchanged. KIDNEYS: No cysts evident. No calculi nor hydronephrosis. No solid renal masses. LYMPH NODES: There is no retroperitoneal nor para-aortic adenopathy. No obvious mesenteric masses. ABDOMINAL WALL: No evidence of significant anterior abdominal wall hernia. GI: There are no ischemic appearing bowel loops. No free air. No free fluid PELVIS: LYMPH NODES: There is no intrapelvic nor inguinal adenopathy. GI: No evidence of appendicitis.No evidence of sigmoid diverticulitis. URINARY BLADDER: No calculi nor masses evident REPRODUCTIVE: Uterus and adnexal regions unremarkable. No free fluid OSSEOUS: No significant osseous lesions. IMPRESSION: 1. Compared to the prior CT scan of 10/12/2020 there is again noted an unchanged area of focal dissec tion of the (nondilated) abdominal aorta, this at the L2-3 level. Contrast enhancement seen both lum ens at this level. 2. There is a moderate focal stenosis at the origin of the left common iliac artery. Both common trevor ac arteries are calcified but not enlarged. No calcifications, aneurysms, nor significant stenosis w ithin the bilateral external iliac arteries and common femoral arteries. 3. Unchanged right adrenal nodule measuring 2 x 1 cm, unchanged 4. Moderate size hiatal hernia noted. 2.6 x 2.6 cm. RADIATION DOSE DELIVERED: 1,359.82mGy.cm Total DLP DATA REPOSITORY: All CT scans at this facility are submitted to the National Radiology Data Registry (NRDR) Dose Index Registry (DIR) with the [employer] (A[employer]). RADIATION OPTIMIZATION: All CT scans at this facility use at least one of these dose optimization te chniques: automated exposure control; mA and/or kV adjustment per patient size (includes targeted exa ms where dose is matched to clinical indication); or iterative reconstruction.
[2021-09-17] MEDS: Omnipaque 350 MG/ML 100 ML BTL IJ (14:50)
== END 2021-09-17 00:50 ==
PROVIDERS: PCP Nurse Practitioner Adult Health; Visit Provider Nurse Practitioner Adult Health
DX: E27.8 Other specified disorders of adrenal gland (principal); G89.29 Other chronic pain; I70.0 Atherosclerosis of aorta; M54.9 Dorsalgia, unspecified; R93.5 Abnormal findings on diagnostic imaging of other abdominal regions, including retroperitoneum; K44.9 Diaphragmatic hernia without obstruction or gangrene
CPT/HCPCS: 74174; J3490

== ENCOUNTER 2022-09-24 01:13 | Outpatient (CLI) | payer MEDICAID, SELFPAY ==
--- NOTE | 2022-09-24 08:15 | DI.CT_ITS ---
Exam(s) CT ABDOMEN PELVIS CTA EXAM: CT ABDOMEN PELVIS CTA CLINICAL HISTORY: 1y F/U; assess aortic dissection,i71.02. TECHNIQUE: Imaging Protocol: Axial CT angiography was performed with multi-slice acquisition and m ulti-planar and/or 3D reconstructions. CONTRAST MATERIAL: Intravenous: Omnipaque 350 Contrast volume:structured data in ml Oral: no COMPARISON: CT CT THORAX ABD/PEL CTA from 10/11/[address] ABDOMEN PELVIS CTA from 09/17/2021 FINDINGS: Vascular Structures: Celiac [place]/SMA: No evidence of stenosis. Renal Arteries: No evidence of stenosis. There is a single renal artery perfusing each kidney. Aorta: severe atherosclerotic changes. No aneurysm. Stable small focal area of web like dissection in the infrarenal portion of the abdominal aorta. Both lumens patent. Pelvis: Iliac Arteries: Stable moderate stenosis left iliac artery disc below bifurcation. Common Femoral Arteries: No evidence of stenosis. Soft Tissues:Unremarkable Lung bases:Normal. Small hiatal hernia. Liver: Normal density. No measurable mass. Gallbladder and biliary tract: No radiodense calculus or dilation. Pancreas: Normal density, no abnormal calcifications or inflammatory process. Spleen: Normal. Kidneys: Normal size, contour and axis. No radiodense stones or obstructive uropathy. No masses seen. Adrenal glands: Stable small right adrenal adenoma. Bladder: Symmetric distention, no gross wall thickening. Bowel: No obstruction or bowel wall thickening. Peritoneal cavity: No ascites, collection or mesenteric inflammatory response. Bones: Within normal limits. Lymph nodes: Within normal limits. IMPRESSION: No change in focal area of dissection in the infrarenal abdominal aorta. Severe atherosclerotic robin ges noted of the aorta and iliac arteries. Stable moderate narrowing left common iliac artery. No new findings. RADIATION DOSE DELIVERED: 753.47mGy.cm Total DLP DATA REPOSITORY: All CT scans at this facility are submitted to the National Radiology Data Registry (NRDR) Dose Index Registry (DIR) with the [employer] (ACR). RADIATION OPTIMIZATION: All CT scans at this facility use at least one of these dose optimization te chniques: automated exposure control; mA and/or kV adjustment per patient size (includes targeted exa ms where dose is matched to clinical indication); or iterative reconstruction.
[2022-09-24 14:01] LABS: Anion Gap 10.8 mmol/L (3-11); BUN 11 mg/dL (7-18); CO2 29.2 mmol/L (21.0-32.0); CREATININE 0.9 mg/dL (0.55-1.02); Calculated LDL 94 mg/dL (<100); Chloride 98 mmol/L (98-107); Cholesterol 184 mg/dL (<200); Estimated GFR 74.57 (mL/min/1.73m2); Glucose 100 mg/dL (74-106); HDL Cholesterol 74 mg/dL (40-60); Potassium 3.1 mmol/L (3.5-5.1); Sodium 138 mmol/L (136-145); Triglyceride 81 mg/dL (<150)
[2022-09-24] MEDS: Omnipaque 350 MG/ML 500 ML BTL-Imaging package IJ (14:24)
[2022-09-24] MEDS: Normal Saline - Diluent 50 ML VIAL IJ (14:25)
== END 2022-09-24 01:33 ==
LOC: DI 01:13
PROVIDERS: PCP Nurse Practitioner Adult Health; Visit Provider Nurse Practitioner Adult Health
DX: I70.0 Atherosclerosis of aorta (principal); I71.02 Dissection of abdominal aorta; E78.2 Mixed hyperlipidemia; I10 Essential (primary) hypertension
CPT/HCPCS: 80048; 80061; 74174

== ENCOUNTER 2023-07-04 13:15 | Emergency (ER) | payer MEDICAID, SELFPAY ==
--- NOTE | 2023-07-04 13:15 | DI.RAD_ITS ---
Exam(s) XR KNEE RT 2V AP,LAT XR FEMUR RT EXAM: XR KNEE RT 2V AP,LAT and XR femur RT CLINICAL HISTORY: fall medial lateral pain. TECHNIQUE: 2D digital imaging was performed. Six images were obtained. AP, lateral and oblique view s were obtained. COMPARISON: CR RIGHT KNEE LIMITED 1 OR 2 VIEW from 09/26/2014 FINDINGS: BONES: There are stable post operative changes of a right total knee replacement present. There is a mildly displaced oblique periprosthetic fracture in the medial aspect of the distal right femur. Th e fracture fragment is displaced medially. JOINTS: The orthopedic hardware is in good position. No evidence of hardware loosening. SOFT TISSUE: Vascular calcifications are present. IMPRESSION: 1. Acute mildly displaced periprosthetic fracture involving the medial aspect of the distal femur. 2. Right total knee replacement. DATA REPOSITORY: RADIATION DOSE DELIVERED:
[2023-07-04 13:21] VITALS: BP 165/77; PULSE 100; RESP 16; TEMP 36.8; O2SAT 96
--- NOTE | 2023-07-04 14:05 | DI.VRAD_ITS ---
PROCEDURE INFORMATION: Exam: XR Right Knee Exam date and time: 07/04/2023 1:41 PM Age: 57 years old Clinical indication: Injury or trauma; Fall; Fracture, traumatic; Closed fracture; Femur; Right; Prior surgery; Surgery date: 6+ months; Surgery type: Knee replacement 2014 TECHNIQUE: Imaging protocol: Radiologic exam of the right knee. Views: 1 or 2 views. COMPARISON: CR XR FOOT RT COMPLETE 03/17/2021 2:44 PM FINDINGS: Bones/joints: There is demineralization of the visualized bones. Surgical changes of total knee arthroplasty. There is a distal femoral oblique comminuted periprosthetic fracture with 5 mm medial displacement. There is a small knee joint effusion. Fragmentation of the superior pole of his patella, from prior surgery. Soft tissues: Normal. Vasculature: There are vascular calcifications.. IMPRESSION: Total right knee arthroplasty with a mildly displaced distal femoral periprosthetic fracture. Dictated and Authenticated by: Mansoor Strong MD. Ordering:ELAN Ramon MD
--- NOTE | 2023-07-04 14:23 | ED.GENADUL_ITS ---
HPI General Stated Complaint: Orthopedic Mode of arrival: EMS. SHITAL: 3 Date/Time Provider Initiated Documentation: 07/04/23 13:15. Limitations to Documentation: no limitations. Information obtained by: patient, EMS and RN notes reviewed. History of Present Illness Fall with injury to right knee moderate and severe right and lower extremity hour(s) (1) constant Immobilization improves symptom(s), Movement worsens symptoms no other symptoms. none Related Data Home Medications Medication Instructions Recorded Confirmed primidone 50 mg tablet 50 mg PO HS #90 tab-caps 05/24/23 05/24/23 aspirin 81 mg tablet,delayed 81 mg PO DAILY #90 tabs 05/26/23 release (Enteric Coated Aspirin) atorvastatin 80 mg tablet 80 mg PO DAILY #90 tabs 05/26/23 hydrochlorothiazide 25 mg tablet See Rx Instructions .Route 05/26/23 .COMPLEX #90 tabs omeprazole magnesium 20 mg 20 mg PO DAILY #90 caps 05/26/23 tablet,delayed release (Prilosec OTC) potassium chloride 20 mEq 20 meq PO DAILY #90 tabs 05/26/23 tablet,extended release Previous Rx's Medication Instructions Recorded primidone 50 mg tablet 50 mg PO HS #90 tab-caps 05/24/23 aspirin 81 mg tablet,delayed 81 mg PO DAILY #90 tabs 05/26/23 release (Enteric Coated Aspirin) atorvastatin 80 mg tablet 80 mg PO DAILY #90 tabs 05/26/23 hydrochlorothiazide 25 mg tablet See Rx Instructions .Route 05/26/23 .COMPLEX #90 tabs omeprazole magnesium 20 mg 20 mg PO DAILY #90 caps 05/26/23 tablet,delayed release (Prilosec OTC) potassium chloride 20 mEq 20 meq PO DAILY #90 tabs 05/26/23 tablet,extended release Allergies Allergy/AdvReac Type Severity Reaction Status Date / Time isopropyl alcohol Allergy Intermediate rash Verified 05/24/23 12:44 ibuprofen Allergy Mild Hives Verified 05/24/23 12:44 house dust Allergy Sneezinig Verified 05/24/23 12:44 sertraline AdvReac Intermediate Nightmares Verified 05/24/23 12:44 Review of Systems Cardiovascular Cardiovascular: Denies chest pain, Denies syncope and Denies dyspnea Respiratory Respiratory: Denies dyspnea Gastrointestinal Gastrointestinal: Denies abdominal pain and Denies vomiting Musculoskeletal Musculoskeletal: Reports as per HPI, Reports arthralgias, Reports limited range of motion, Denies numbness and Denies tingling Integumentary/Breasts Skin/Breast: Denies unusual bruising Neurologic Neurologic: Denies syncope, Denies numbness and Denies tingling PFSH All Active Problems (Updated 07/04/23 @ 15:58 by Tristen Damian NP) Laura-prosthetic fracture around prosthetic knee (Acute) Fracture of distal end of right femur (Acute) Aortic dissection, abdominal (Acute ~09/2020) repeat CTA abd and pelvis annually + lifelong ASA + lifelong statin + good BP control + nicotine cessation Dependent for transportation (Acute) Atherosclerosis of abdominal aorta (Chronic ~09/2020) 10/11/2020 CT: possible chronic dissection or severe atheromatous change of the inferior portion of the abdominal aorta at the L2-3 disc level, remaining luminal diameter is roughly 6 millimeters as opposed to 13 millimeter diameter of the distal aorta. Please correlate clinically regarding any acute or chronic clinical suggestion of arterial insufficiency of the lower extremities. --> Vascular Surgery consult recommended and patient declines. Patient advised to start ASA 81 mg daily & she agrees. Abnormal Papanicolaou smear of cervix with positive human papilloma virus (HPV) test (Acute) 2011. + HPV 2015. LEEP: Path JUSTINO-2 10/2016 ASCUS. + HPV. 12/2016. Normal colpo directed biopsies Tobacco use disorder (Chronic) Hypokalemia (Chronic) Chronic K+ supplement Anxiety (Chronic) Migraine headache without aura (Chronic) HTN (hypertension) (Chronic) Lactose intolerance (Chronic 12/19/13) Hyperlipidemia (Chronic 08/26/01) 05/2018 labs: adequate response in the lipid panel, continue current moderate intensity statin therapy Essential tremor (Chronic 02/19/16) Resting tremor (Chronic) COPD (chronic obstructive pulmonary disease) (Chronic) a. PFTs in 02/2014 showed mild obstructive disease with no significant bronchodilator response GERD (gastroesophageal reflux disease) (Chronic) Medical History Foot fracture, right Fracture of right ankle, lateral malleolus Chronic back pain s/p ASA & Atorvastatin initiation per pt 07/2021 Edentulism Sensorineural hearing loss, bilateral 12/11/19 [facility] Pneumothorax (10/07/09) Chronic daily headache (09/15/16) ASCUS with positive high risk HPV (01/11/17) Degenerative arthritis of left knee (09/26/14) Surgical History Status post arthroscopic surgery of right knee (~1998) Dr. Yi Status post lymph node biopsy Benign at right hairline Ligation of fallopian tube Replacement of total knee joint (09/26/14) Right; Dr. Alfred Terrazas Family History Mother Mental disorder Depression Seizure disorder Father , UNKNOWN COPD (chronic obstructive pulmonary disease) Social History Smoking/Tobacco Use Status: Current every day Smoking risk assessment performed?: Yes Alcohol Intake: never Drug use: Never Substance use type: does not use Caregiver/Support person: No Household members: significant other and other Details: Faraz x8 years Housing: apartment Number of Children: 4 Communication Needs: None current occupation: Not employed. Receives general assistance has apply for disability Pets and animals: Yes (Corine louise) Pets and animals: cat(s) and dog(s) Current gender identity: female What type of physical activity do you participate in: none Seatbelt use: always Water heater temp set <120 deg: Yes Working smoke detector in home: Yes Fire extinguisher in home: Yes Carbon monox detector in home: Yes Do you feel safe at home: Yes Do you feel safe in your relationship?: Yes Additional Social history: She lives with her ERIC and her son Costa. 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 She smokes 1/4 ppd. No ETOH since 2011. No illicit drug use. Female Reproductive History Menstrual Menopause type: natural (LMP 2009) Exam Const General: acute distress moderate and anxious Nutritional Appearance: overweight Orientation: alert and awake HENMT Head: normal to inspection and atraumatic Mouth: moist mucous membranes Resp Effort & Inspection: normal respiratory effort, able to speak in complete sentences and no respiratory distress Cardio Rate: regular rate Rhythm: regular rhythm Pulses: normal peripheral pulses Skin General skin exam: no rashes or lesions noted Neuro General: patient alert, patient awake, patient oriented x3, moves all extremities and no focal motor deficits Sensory Exam: no sensory deficits noted Extrem General: normal exam except as noted Right lower extremity: knee Details: tenderness (Medial) and abnormal ROM Details: unable to extend lower leg actively; no abrasions and no ecchymosis Course Vital Signs Vital signs: Vital Signs Temperature 36.8 C 07/04/23 13:21 Pulse 100 H 07/04/23 13:21 Respiratory Rate 16 07/04/23 13:21 Blood Pressure 165/77 H 07/04/23 13:21 Pulse Oximetry 96 07/04/23 13:21 Temperature 36.8 C 07/04/23 13:21 Pulse 100 H 07/04/23 13:21 Respiratory Rate 16 07/04/23 13:21 Respiratory Effort Normal 07/04/23 13:23 Blood Pressure 165/77 H 07/04/23 13:21 Blood Pressure Position Sitting 07/04/23 13:21 Pulse Oximetry 96 07/04/23 13:21 Oxygen Delivery Method Room Air 07/04/23 13:21 Oxygen Flow Rate 0 07/04/23 13:21 Pain Level 3 07/04/23 13:21 Medical Decision Making Patient presenting to the emergency department for chief complaint of fall. She reports that she landed on her butt but then afterwards had significant and severe knee pain causing her to not be able to get up. At that point she called the ambulance to help get her up and transport her to the emergency department. Patient denies any other injury or trauma, syncope, headache, chest pain lightheadedness belly pain or other traumatic symptoms. Examination and palpation of the hips and pelvis is unremarkable, proximal femur shows no pain or discomfort, medial knee/distal femur is tender with some tenderness noted to medial proximal tibia. Patient unable to extend lower extremity down to bed due to severe pain. Pulses and sensation are intact distal to injury exam is otherwise noncontributory. Patient does have history of joint replacement on that side so we will perform radiological imaging for evaluation of acute strain secondary to twist injury versus fracture. While patient is very anxious and somewhat difficult initially I was able to calm her down and she is is refusing any pain medication at this time. Was able to get patient to relax lower extremity prior to x-ray and extend knee. X-ray contacted me and stated obvious distal femur fracture near the prostatic and requested further imaging. Patient in so much pain I did order pain medication but she refused this med. Additional images were able to be obtained and does show obvious distal femur fracture with involvement of the prostatic Did call and speak with Dr. Teixeira orthopedic surgeon who stated that this is nothing we would be able to repair at our facility and that she would need tertiary care center. Patient placed in a knee immobilizer and [facility] [facility] orthopedic group was paged. Patient still refusing pain medication. She does state that she has a walker at home that she can use to be nonweightbearing. Patient signed out pending [facility] tertiary care center consult for arrangement of follow-up Quality:[facility] Health Related Social Needs: No Data to Display Sign Out Sign Out Data: Sign Out Comment: Patient signed out pending consult with tertiary [facility] for periprosthetic distal femur fracture. Patient with knee replacement in 2014. Patient in knee immobilizer and given dose of [place] in the emergency department to control pain pending consult. Last updated by Tristen Damian, ELEMENTARY SPECIAL EDUCATION TEACHER at 07/04/23 15:56 Discharge Plan Discharge Details Chief Complaint: Orthopedic Clinical Impression: Fracture of distal end of right femur, Laura-prosthetic fracture around prosthetic knee Primary Care Provider: Kiya Juan ED Provider: Tristen Damian Home Meds and New Rx's Prescriptions: No Action primidone 50 mg tablet 50 mg PO HS Qty: 90 3RF atorvastatin 80 mg tablet 80 mg PO DAILY Qty: 90 3RF Rx Instructions: Dose increase 04/13/2022 aspirin [Enteric Coated Aspirin] 81 mg tablet,delayed release (DR/EC) 81 mg PO DAILY Qty: 90 3RF Rx Instructions: Vascular hydrochlorothiazide 25 mg tablet See Rx Instructions .ROUTE .COMPLEX Qty: 90 3RF Dose Instruction: TAKE 1 TABLET BY MOUTH EVERY MORNING Rx Instructions: TAKE 1 TABLET BY MOUTH EVERY MORNING omeprazole magnesium [Prilosec OTC] 20 mg tablet,delayed release (DR/EC) 20 mg PO DAILY Qty: 90 3RF Rx Instructions: Take 20 mg once daily in the morning at least 20-30 minutes before first meal; please dispense capsules potassium chloride 20 mEq tablet extended release 20 meq PO DAILY Qty: 90 3RF Rx Instructions: Dose increase 09/24/22
--- NOTE | 2023-07-04 14:29 | DI.VRAD_ITS ---
PROCEDURE INFORMATION: Exam: XR Right Femur Exam date and time: 07/04/2023 2:04 PM Age: 57 years old Clinical indication: Injury or trauma; Fall; Fracture, traumatic; Closed fracture; Femur; Right; Prior surgery; Surgery date: 6+ months; Surgery type: Knee replacement TECHNIQUE: Imaging protocol: Radiologic exam of the right femur. Views: 2 views. COMPARISON: CR XR KNEE RT 2V AP,LAT 07/04/2023 1:41 PM FINDINGS: Bones/joints: Mild degenerative disease of the right hip joint. Distal femoral oblique periprosthetic fracture with 5 mm medial displacement. Patient is post total knee arthroplasty. Small knee joint effusion. Soft tissues: Unremarkable. Vasculature: Pelvic phleboliths. There are vascular calcifications. IMPRESSION: Post total knee arthroplasty with distal femoral oblique mildly displaced periprosthetic fracture. Dictated and Authenticated by: Mansoor Strong MD. Ordering:ELAN Ramon MD
--- NOTE | 2023-07-04 16:06 | ED.PROG_ITS ---
Date of service: 07/04/23 Time of Service: 16:06 Medical Decision Making This dictation utilizes [id number] dictation software and may contain unedited grammatical errors. 57 y/o F presents to ED today with a chief complaint of trip & fall with injury to R knee, hx of TKA R knee with fracture laura-prosthesis. Patient signed out to me by outgoing provider Tristen Damian PA-C, with pending [facility] [place] [place] Orthopaedics consult- patient is in a knee immobilizer, refused IV narcotics, had 1 [place] here in ED. Our orthopaedist on-call does not perform repairs to laura-prosthetic fractures and patient has a AAA, which may not be handled by our anesthesia department. Patients' medical history: known AAA with history dissection in past with repair, COPD, adrenal mass, HTN, tremor. Family and social history: noncontributory, lives at home. Pertinent exam findings / vital signs include NV intact distal to laura-pr osthetic R knee fracture. Differential / pathologies of concern include laura-prosthetic fracture. Diagnostic studies of: -XR R Knee - shows fracture. Interventions of: -knee immob. ED Course/Assessment/Plan: Pending consult at [facility] [place] [place] - transfer vs outpatient scheduling - [ ]. Spoke with the patient, patient very impatient and julián, wishing to be discharged stating I've been here for 5 hours. I explained to them that they could be discharged if they wish, but they need to demonstrate safe [id number] use of walker or crutches in department, or it would be against medical advice due to significant risks of laura-prosthetic fracture and the patients baseline tremor and safety at home. They do not wish to wait for [facility] [place] [place] consult. They did demonstrate adequate safe NWB technique with crutches, and I did advise of severity of consequence if further falls or WB to their fracture- they still wished to be discharged. They demonstrated good technique with crutches, have a walker at home, and have someone that can give them a wheelchair- will follow with [facility] [place] [place] consult and pass along their information but I recommend they speak to PCP or call [facility] [place] [place] ortho or other facility for definitive treatment. Spoke with [facility] [place] [place] Ortho on-call, they have her contact information and will contact her and urge her to come in for surgical evaluation @ [phone]. Findings not consistent with NV compromise. Disposition of Fracture of distal end of right femur, periprosthetic fracture around prosthetic knee. Patient verbalized understanding of the plan and return to ED criteria and engaged in shared decision making. Medical Records Medical records reviewed: Yes I reviewed the patient's medical records. Imaging Data Radiologic Study: Imaging: X-Ray Radiologist's impression: Exam: XR Right Knee Exam date and time: 07/04/2023 1:41 PM Age: 57 years old Clinical indication: Injury or trauma; Fall; Fracture, traumatic; Closed fracture; Femur; Right; Prior surgery; Surgery date: 6+ months; Surgery type: Knee replacement 2014 TECHNIQUE: Imaging protocol: Radiologic exam of the right knee. Views: 1 or 2 views. COMPARISON: CR XR FOOT RT COMPLETE 03/17/2021 2:44 PM FINDINGS: Bones/joints: There is demineralization of the visualized bones. Surgical changes of total knee arthroplasty. There is a distal femoral oblique comminuted periprosthetic fracture with 5 mm medial displacement. There is a small knee joint effusion. Fragmentation of the superior pole of his patella, from prior surgery. Soft tissues: Normal. Vasculature: There are vascular calcifications.. IMPRESSION: Total right knee arthroplasty with a mildly displaced distal femoral periprosthetic fracture. Dictated and Authenticated by: Mansoor Strong MD. Ordering:ELAN Ramon MD Quality:[facility] Health Related Social Needs: No Data to Display Sign Out Sign Out Data: Sign Out Comment: Patient signed out pending consult with tertiary care center for periprosthetic distal femur fracture. Patient with knee replacement in 2014. Patient in knee immobilizer and given dose of [place] in the emergency department to control pain pending consult. Last updated by Tristen Damian, MARINE DIESEL MECHANIC at 07/04/23 15:56 Discharge Plan Disposition Patient Disposition: Home Discharge Details Clinical Impression: Fracture of distal end of right femur, Laura-prosthetic fracture around prosthetic knee Primary Care Provider: Kiya Juan ED Provider: Gino Romero Home Meds and New Rx's Prescriptions: No Action primidone 50 mg tablet 50 mg PO HS Qty: 90 3RF atorvastatin 80 mg tablet 80 mg PO DAILY Qty: 90 3RF Rx Instructions: Dose increase 04/13/2022 aspirin [Enteric Coated Aspirin] 81 mg tablet,delayed release (DR/EC) 81 mg PO DAILY Qty: 90 3RF Rx Instructions: Vascular hydrochlorothiazide 25 mg tablet See Rx Instructions .ROUTE .COMPLEX Qty: 90 3RF Dose Instruction: TAKE 1 TABLET BY MOUTH EVERY MORNING Rx Instructions: TAKE 1 TABLET BY MOUTH EVERY MORNING omeprazole magnesium [Prilosec OTC] 20 mg tablet,delayed release (DR/EC) 20 mg PO DAILY Qty: 90 3RF Rx Instructions: Take 20 mg once daily in the morning at least 20-30 minutes before first shazia l; please dispense capsules potassium chloride 20 mEq tablet extended release 20 meq PO DAILY Qty: 90 3RF Rx Instructions: Dose increase 09/24/22 Discharge Instructions Instructions: Leg Fracture (ED) Additional Instructions: You were seen in the emergency department for your periprosthetic right distal femur fracture. This is a very severe injury and has severe consequences if you suffer a further fall or if you are performing weightbearing at home. You did demonstrate adequate technique with crutches and you state you have access to a walker at home as well as possible access to a wheelchair from a friend. I will follow-up with [facility] orthopedics consult and pass along your information to them but this is not a standard way to go about this kind of referral for possible surgery. You may need to contact them yourself, you may reach out to other orthopedic services in the area as well. You stated you wish to be discharged I advised that you do not weight-bear whatsoever on your leg, perform rest, ice, compression, elevation. Please use therapeutic dosing of Tylenol (acetamenophen) & Advil (ibuprofen) in an alternating fashion as follows: Take 1000mg of Tylenol every 6 hours without missing doses- that is 4 times per day. [place] in between the Tylenol dosings, take 400-600mg of Advil also on a 6 hour schedule, that is also 4 times per day. The daily maximum dosing of Tylenol is 4000mg, and the daily maximum dosing of Advil is 2400mg. This is safe to do for weeks. Please note that some common cold medications & prescription pain medications may contain acetamenophen and you need to read OTC drug labels and factor that in to maximum daily dosings. Please return to the emergency room at once for any complications including numbness tingling distally, increase in swelling or redness to the area, severe increase in pain. Referrals: Kiya Juan, MARINE DIESEL MECHANIC [Primary Care Provider] - (Patient refused to wait for [facility] [place] [place] ortho consult for laura-prosthetic femur fracture.)
[2023-07-04] MEDS: HYDROcodone 5/Acetaminophen 325 TAB PO (16:30)
== END 2023-07-04 17:14 | disposition home or self-care (01) ==
PROVIDERS: Emergency Provider Physician Assistant; PCP Nurse Practitioner Adult Health
DX: S72.401A Unspecified fracture of lower end of right femur, initial encounter for closed fracture; Z96.651 Presence of right artificial knee joint; F17.200 Nicotine dependence, unspecified, uncomplicated; M97.8XXA Periprosthetic fracture around other internal prosthetic joint, initial encounter; M25.561 Pain in right knee
CPT/HCPCS: 123; 73552; 99284; 00123; 73560; 99283

== ENCOUNTER 2023-07-05 13:59 | Emergency (ER) | payer MEDICAID, SELFPAY ==
[2023-07-05 13:53] VITALS: BP 178/77; PULSE 92; RESP 20; TEMP 36.7; O2SAT 92
[2023-07-05] MEDS: HYDROcodone 5/Acetaminophen 325 TAB PO (14:18)
--- NOTE | 2023-07-05 15:22 | ED.GENADUL_ITS ---
HPI General Stated Complaint: Orthopedic Mode of arrival: EMS. SHITAL: 3 Date/Time Provider Initiated Documentation: 07/05/23 14:00. Limitations to Documentation: no limitations. Information obtained by: patient and RN notes reviewed. History of Present Illness Continued knee pain day(s) (1) Immobilization improves symptom(s), Movement worsens symptoms no other symptoms. none Related Data Home Medications Medication Instructions Recorded Confirmed primidone 50 mg tablet 50 mg PO HS #90 tab-caps 05/24/23 07/05/23 aspirin 81 mg tablet,delayed 81 mg PO DAILY #90 tabs 05/26/23 07/05/23 release (Enteric Coated Aspirin) atorvastatin 80 mg tablet 80 mg PO DAILY #90 tabs 05/26/23 07/05/23 hydrochlorothiazide 25 mg tablet See Rx Instructions .Route 05/26/23 07/05/23 .COMPLEX #90 tabs omeprazole magnesium 20 mg 20 mg PO DAILY #90 caps 05/26/23 07/05/23 tablet,delayed release (Prilosec OTC) potassium chloride 20 mEq 20 meq PO DAILY #90 tabs 05/26/23 07/05/23 tablet,extended release Previous Rx's Medication Instructions Recorded primidone 50 mg tablet 50 mg PO HS #90 tab-caps 05/24/23 aspirin 81 mg tablet,delayed 81 mg PO DAILY #90 tabs 05/26/23 release (Enteric Coated Aspirin) atorvastatin 80 mg tablet 80 mg PO DAILY #90 tabs 05/26/23 hydrochlorothiazide 25 mg tablet See Rx Instructions .Route 05/26/23 .COMPLEX #90 tabs omeprazole magnesium 20 mg 20 mg PO DAILY #90 caps 05/26/23 tablet,delayed release (Prilosec OTC) potassium chloride 20 mEq 20 meq PO DAILY #90 tabs 05/26/23 tablet,extended release Allergies Allergy/AdvReac Type Severity Reaction Status Date / Time isopropyl alcohol Allergy Intermediate rash Verified 07/05/23 13:58 ibuprofen Allergy Mild Hives Verified 07/05/23 13:58 house dust Allergy Sneezinig Verified 07/05/23 13:58 sertraline AdvReac Intermediate Nightmares Verified 07/05/23 13:58 Review of Systems Constitutional Constitutional: Denies chills and Denies fever(s) Musculoskeletal Musculoskeletal: Reports as per HPI, Reports arthralgias, Reports joint swelling, Reports limited range of motion, Denies muscle weakness, Denies numbness and Denies tingling Integumentary/Breasts Skin/Breast: Denies change in pigmentation Neurologic Neurologic: Denies numbness and Denies tingling PFSH All Active Problems Laura-prosthetic fracture around prosthetic knee (Acute) Fracture of distal end of right femur (Acute) Aortic dissection, abdominal (Acute ~09/2020) repeat CTA abd and pelvis annually + lifelong ASA + lifelong statin + good BP control + nicotine cessation Dependent for transportation (Acute) Atherosclerosis of abdominal aorta (Chronic ~09/2020) 10/11/2020 CT: possible chronic dissection or severe atheromatous change of the inferior portion of the abdominal aorta at the L2-3 disc level, remaining luminal diameter is roughly 6 millimeters as opposed to 13 millimeter diameter of the distal aorta. Please correlate clinically regarding any acute or chronic clinical suggestion of arterial insufficiency of the lower extremities. --> Vascular Surgery consult recommended and patient declines. Patient advised to start ASA 81 mg daily & she agrees. Abnormal Papanicolaou smear of cervix with positive human papilloma virus (HPV) test (Acute) 2011. + HPV 2015. LEEP: Path JUSTINO-2 10/2016 ASCUS. + HPV. 12/2016. Normal colpo directed biopsies Tobacco use disorder (Chronic) Hypokalemia (Chronic) Chronic K+ supplement Anxiety (Chronic) Migraine headache without aura (Chronic) HTN (hypertension) (Chronic) Lactose intolerance (Chronic 12/19/13) Hyperlipidemia (Chronic 08/26/01) 05/2018 labs: adequate response in the lipid panel, continue current moderate intensity statin therapy Essential tremor (Chronic 02/19/16) Resting tremor (Chronic) COPD (chronic obstructive pulmonary disease) (Chronic) a. PFTs in 02/2014 showed mild obstructive disease with no significant bronchodilator response GERD (gastroesophageal reflux disease) (Chronic) Medical History Foot fracture, right Fracture of right ankle, lateral malleolus Chronic back pain s/p ASA & Atorvastatin initiation per pt 07/2021 Edentulism Sensorineural hearing loss, bilateral 12/11/19 ENT [facility] Pneumothorax (10/07/09) Chronic daily headache (09/15/16) ASCUS with positive high risk HPV (01/11/17) Degenerative arthritis of left knee (09/26/14) Surgical History Status post arthroscopic surgery of right knee (~1998) Dr. Yi Status post lymph node biopsy Benign at right hairline Ligation of fallopian tube Replacement of total knee joint (09/26/14) Right; Dr. Alfred Terrazas Family History Mother Mental disorder Depression Seizure disorder Father , UNKNOWN COPD (chronic obstructive pulmonary disease) Social History Smoking/Tobacco Use Status: Current every day Smoking risk assessment performed?: Yes Alcohol Intake: never Drug use: Never Substance use type: does not use Caregiver/Support person: No Household members: significant other and other Details: Faraz x8 years Housing: apartment Number of Children: 4 Communication Needs: None current occupation: Not employed. Receives general assistance has apply for disability Pets and animals: Yes (Corine luoise) Pets and animals: cat(s) and dog(s) Current gender identity: female What type of physical activity do you participate in: none Seatbelt use: always Water heater temp set <120 deg: Yes Working smoke detector in home: Yes Fire extinguisher in home: Yes Carbon monox detector in home: Yes Do you feel safe at home: Yes Do you feel safe in your relationship?: Yes Additional Social history: She lives with her ERIC and her son Costa. 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 She smokes 1/4 ppd. No ETOH since 2011. No illicit drug use. Female Reproductive History Menstrual Menopause type: natural (LMP 2009) Exam Const General: acute distress moderate and anxious Nutritional Appearance: overweight Orientation: alert and awake HENMT Head: normal to inspection and atraumatic Mouth: moist mucous membranes Resp Effort & Inspection: normal respiratory effort, able to speak in complete sentences and no respiratory distress Cardio Rate: regular rate Rhythm: regular rhythm Pulses: normal peripheral pulses Skin General skin exam: no rashes or lesions noted Neuro General: patient alert, patient awake, patient oriented x3, moves all extremities and no focal motor deficits Sensory Exam: no sensory deficits noted Extrem General: normal exam except as noted Right lower extremity: knee Details: tenderness (Medial); ROM abnormal, no abrasions and no ecchymosis Course Vital Signs Vital signs: Vital Signs Temperature 36.7 C 07/05/23 13:53 Pulse 92 H 07/05/23 13:53 Respiratory Rate 20 07/05/23 13:53 Blood Pressure 178/77 H 07/05/23 13:53 Pulse Oximetry 92 07/05/23 13:53 Temperature 36.7 C 07/05/23 13:53 Temperature Source Skin 07/05/23 13:53 Pulse 92 H 07/05/23 13:53 Respiratory Rate 20 07/05/23 13:53 Respiratory Effort Normal, Non-Labored 07/05/23 14:10 Blood Pressure 178/77 H 07/05/23 13:53 Blood Pressure Position Sitting 07/05/23 13:53 Pulse Oximetry 92 07/05/23 13:53 Oxygen Delivery Method Room Air 07/05/23 13:53 Oxygen Flow Rate 0 07/05/23 13:53 Pain Level 10 07/05/23 14:18 Medical Decision Making Patient presenting to the emergency department for chief complaint of right knee swelling and continued pain. Patient was seen by myself yesterday and has a distal femur fracture that does involve her previous knee replacement. Patient left yesterday evening AMA before consult with [facility] who was to follow-up with patient. Patient denies any numbness and tingling to her lower extremity, color change, or any other symptoms. Physical exam is unremarkable expect for expected findings of tenderness surrounding area of fracture. No signs of compartment syndrome, pulse and sensation along with movement of ankle is all intact. I feel that patient's symptoms are somewhat from anxiety and secondarily to pain. Patient states that she has not been taking any pain medication. Will give patient 1 Ritika here and contact [facility]. Was able to speak to [facility] transfer center who stated that they did check with orthopedist and orthopedic group would contact patient for arrangement of follow-up more than likely within the next 24 to 48 hours. This was communicated to patient along with return and follow-up precautions. Did give patient a limited prescription of to go [place] to assist with pain otherwise patient was encouraged to continue use of [id number] pain medication until her follow-up. After discussion of diagnosis and plan of care patient has no further needs, questions, or concerns and states clear understanding to return to the emergency department for any worsening symptoms. This documentation was generated using [employer] dictation system, please disregard any oddities of phrase or misspellings. Quality:[facility] Health Related Social Needs: No Data to Display Discharge Plan Disposition Patient Disposition: Home Discharge Details Clinical Impression: Fracture of distal end of right femur, Laura-prosthetic fracture around prosthetic knee Primary Care Provider: Kiya Juan ED Provider: Tristen Damian Home Meds and New Rx's Prescriptions: No Action primidone 50 mg tablet 50 mg PO HS Qty: 90 3RF atorvastatin 80 mg tablet 80 mg PO DAILY Qty: 90 3RF Rx Instructions: Dose increase 04/13/2022 aspirin [Enteric Coated Aspirin] 81 mg tablet,delayed release (DR/EC) 81 mg PO DAILY Qty: 90 3RF Rx Instructions: Vascular hydrochlorothiazide 25 mg tablet See Rx Instructions .ROUTE .COMPLEX Qty: 90 3RF Dose Instruction: TAKE 1 TABLET BY MOUTH EVERY MORNING Rx Instructions: TAKE 1 TABLET BY MOUTH EVERY MORNING omeprazole magnesium [Prilosec OTC] 20 mg tablet,delayed release (DR/EC) 20 mg PO DAILY Qty: 90 3RF Rx Instructions: Take 20 mg once daily in the morning at least 20-30 minutes before first meal; please dispense capsules potassium chloride 20 mEq tablet extended release 20 meq PO DAILY Qty: 90 3RF Rx Instructions: Dose increase 09/24/22 Discharge Instructions Instructions: Leg Fracture (ED) Additional Instructions: You have been given a limited supply of narcotic pain medication. Please use only for severe pain otherwise you may continue use of aaxo-zkn-fylucva medication. Please be nonweightbearing on the affected leg but you still may use walker or crutches to ambulate through your apartment. Please follow-up with [facility] orthopedic group for definitive care of your fracture. Referrals: [facility] [Outside] (Please follow-up with [facility] orthopedics as discussed)
[2023-07-05 16:02] VITALS: BP 148/82; PULSE 82; RESP 20; TEMP 36.8; O2SAT 97
== END 2023-07-05 16:00 | disposition home or self-care (01) ==
PROVIDERS: Emergency Provider Nurse Practitioner Family; PCP Nurse Practitioner Adult Health
DX: M25.561 Pain in right knee (principal); M97.8XXA Periprosthetic fracture around other internal prosthetic joint, initial encounter; Z96.651 Presence of right artificial knee joint; I10 Essential (primary) hypertension; W19.XXXA Unspecified fall, initial encounter
CPT/HCPCS: 99283

== ENCOUNTER 2023-07-27 16:24 | Outpatient (REF) | payer MEDICAID, SELFPAY ==
[2023-07-27 17:29] LABS: Anion Gap 12.8 mmol/L (3-11); BUN 9 mg/dL (7-18); CO2 24.2 mmol/L (21.0-32.0); CREATININE 0.9 mg/dL (0.55-1.02); Calcium 9.5 mg/dL (8.5-10.1); Chloride 102 mmol/L (98-107); Glucose 93 mg/dL (74-106); Potassium 5.1 mmol/L (3.5-5.1); Sodium 139 mmol/L (136-145)
== END 2023-07-27 16:25 | disposition home or self-care (01) ==
LOC: LBN 16:24
PROVIDERS: PCP Nurse Practitioner Adult Health; Visit Provider Nurse Practitioner Adult Health
DX: E87.6 Hypokalemia (principal); I10 Essential (primary) hypertension
CPT/HCPCS: 80048

== ENCOUNTER 2023-08-06 13:25 | Outpatient (REF) | payer MEDICAID, SELFPAY ==
[2023-08-06 12:12] LABS: Anion Gap 12.3 mmol/L (3-11); BUN 7 mg/dL (7-18); CO2 25.7 mmol/L (21.0-32.0); CREATININE 0.7 mg/dL (0.55-1.02); Calcium 9.1 mg/dL (8.5-10.1); Chloride 103 mmol/L (98-107); Estimated GFR 100.19 (mL/min/1.73m2); Glucose 89 mg/dL (74-106); Sodium 141 mmol/L (136-145)
== END 2023-08-06 13:26 | disposition home or self-care (01) ==
LOC: NCHCN 13:25
PROVIDERS: PCP Nurse Practitioner Adult Health; Visit Provider Nurse Practitioner Adult Health
DX: E87.6 Hypokalemia (principal); Z96.641 Presence of right artificial hip joint
CPT/HCPCS: 80048

== ENCOUNTER → 2023-08-25 01:16 | Outpatient (CLI) | payer MEDICAID, SELFPAY ==
--- NOTE | 2023-08-25 13:57 | DI.RAD_ITS ---
Exam(s) XR FEMUR RT EXAM: XR FEMUR RT CLINICAL HISTORY: F/U FX RT FEMUR,s72.351A. TECHNIQUE: 2D digital imaging was performed. AP and lateral views. COMPARISON: CR,XR XR FEMUR RT from 07/04/2023 FINDINGS: BONES: Intramedullary oscar is now seen through the right femur for fracture fixation. There has been no change in fracture alignment. There is a previously existing total knee prosthesis which appears unchanged. No bony destructive lesion is seen. JOINTS: Visualized portion of knee and hip joints are unremarkable. SOFT TISSUE: Normal. IMPRESSION: Stable fracture alignment. Intramedullary oscar through right femur. DATA REPOSITORY: RADIATION DOSE DELIVERED:
== END ==
PROVIDERS: PCP Nurse Practitioner Adult Health; Visit Provider Student in an Organized Health Care Education/Training Program
DX: S72.461D Displaced supracondylar fracture with intracondylar extension of lower end of right femur, subsequent encounter for closed fracture with routine healing (principal); X58.XXXD Exposure to other specified factors, subsequent encounter
CPT/HCPCS: 73552

== ENCOUNTER 2024-01-03 15:15 | Outpatient (REF) | payer MEDICAID, SELFPAY ==
[2024-01-03 19:06] LABS: Anion Gap 9.9 mmol/L (3-11); BUN 13 mg/dL (7-18); CO2 26.1 mmol/L (21.0-32.0); CREATININE 0.9 mg/dL (0.55-1.02); Calcium 9.8 mg/dL (8.5-10.1); Calculated LDL 91 mg/dL (<100); Chloride 104 mmol/L (98-107); Cholesterol 177 mg/dL (<200); Estimated GFR 73.64 (mL/min/1.73m2); Glucose 95 mg/dL (74-106); HDL Cholesterol 69 mg/dL (40-60); Sodium 140 mmol/L (136-145); Triglyceride 87 mg/dL (<150)
== END 2024-01-03 15:16 | disposition home or self-care (01) ==
LOC: LBN 15:15
PROVIDERS: PCP Nurse Practitioner Adult Health; Visit Provider Nurse Practitioner Adult Health
DX: I10 Essential (primary) hypertension (principal); E78.2 Mixed hyperlipidemia; I70.0 Atherosclerosis of aorta; G25.0 Essential tremor
CPT/HCPCS: 80048; 80061

== ENCOUNTER → 2024-01-20 00:49 | Outpatient (CLI) | payer MEDICAID, SELFPAY ==
--- NOTE | 2024-01-20 07:45 | DI.MAMMO_ITS ---
Exam(s) MAMMO SCREENING EXAM: MAMMO SCREENING CLINICAL HISTORY: screening,z12.39 TECHNIQUE: Bilateral full field digital CC and MLO mammographic images were obtained with 3D tomosyn thesis and utilizing computer aided detection (CAD). COMPARISON: Available for comparison. FINDINGS: Masses/Architectural Distortion: None seen. Microcalcifications: No suspicious pleomorphic-type are seen. Skin Thickening/Nipple Retraction: None. IMPRESSION: 1. No significant interval change with no specific features of malignancy noted. 2. Unless there is more urgent need, screening mammography is recommended, as per [employer] guidelines. BI-RADS Category 1 - Negative Breast Density - Category C - Heterogeneously dense Breast density category C or D implies that the patient has dense breast tissue. Dense breast tissue is very common and is not abnormal but dense breast tissue can make it harder to find cancer on a ma mmogram. Also, dense breast tissue may increase their breast cancer risk. This information about the result of the mammogram report was provided to the patient to raise their awareness. Use this report when you speak with the patient about their risks for breast cancer, which includes their family hist ory. At that time, you may recommend for more screening tests (Ultrasound or MRI) as they might be us eful based on their risk. A negative radiographic report should not delay biopsy if a dominant or clinically suspicious mass is present. Up to ten percent of cancers are not identified on mammography. A negative report may reinforce clinical impression. Adenosis and dense breasts may obscure an underlying neoplasm. False positive reports average 6 to 10%. Patient will receive a letter notifying them of these results.
== END ==
PROVIDERS: PCP Nurse Practitioner Adult Health; Visit Provider Nurse Practitioner Adult Health
DX: Z12.39 Encounter for other screening for malignant neoplasm of breast (principal); R92.333 Mammographic heterogeneous density, bilateral breasts; Z12.31 Encounter for screening mammogram for malignant neoplasm of breast
CPT/HCPCS: 77063; 77067

== ENCOUNTER 2024-02-22 17:20 | Outpatient (REF) | payer MEDICAID, SELFPAY ==
--- NOTE | 2024-02-22 14:40 | PAPFT_PTH ---
PATIENT: Ashleigh Paiz LOC: [facility] U#:[id number] AGE/SX: 58/F ROOM: RE02/22/[address]: Evi Delong MD : 1965 BED: DIS: 02/22/2024 SPEC #: [id number] RECD: 02/22/24 17:21 STATUS: ESTELLA REKit #: [id number] PINO: 02/22/24 14:[address]: Evi Delong DEPT: [facility] Cytology RECD BY: Renu Soto ENTERED: 02/22/24 17:22 SP TYPE: PAPFT MAVIS DR: Kiya Juan APRN Tissues: 1 - CX/ENDOCX FOR PAP SMEARS Procedures: PAP THIN PREP/[facility] Screening HPV DNA PROBE Comments: [id number] (HPV 16 & 18/45)
== END 2024-02-22 17:21 | disposition home or self-care (01) ==
LOC: LBN 17:20
PROVIDERS: PCP Nurse Practitioner Adult Health; Visit Provider Obstetrics & Gynecology
DX: R87.89 Other abnormal findings in specimens from female genital organs (principal)
CPT/HCPCS: 88142; 87624

== ENCOUNTER 2025-01-04 14:44 | Outpatient (REF) | payer MEDICAID, SELFPAY ==
[2025-01-04 19:15] LABS: Anion Gap 10.2 mmol/L (3-11); BUN 12 mg/dL (7-18); CO2 27.8 mmol/L (21.0-32.0); Calcium 9.4 mg/dL (8.5-10.1); Calculated LDL 85 mg/dL (<100); Chloride 102 mmol/L (98-107); Cholesterol 167 mg/dL (<200); Estimated GFR 98.95 (mL/min/1.73m2); Glucose 92 mg/dL (74-106); HDL Cholesterol 64 mg/dL (>or=50); Potassium 3.7 mmol/L (3.5-5.1); Sodium 140 mmol/L (136-145); TSH (W/Ref FT4) 0.84 uIU/mL (0.36-3.74); Triglyceride 90 mg/dL (<150)
== END 2025-01-04 14:45 | disposition home or self-care (01) ==
LOC: LBN 14:44
PROVIDERS: PCP Nurse Practitioner Adult Health; Visit Provider Nurse Practitioner Adult Health
DX: E78.2 Mixed hyperlipidemia (principal); I10 Essential (primary) hypertension; F41.9 Anxiety disorder, unspecified
CPT/HCPCS: 80048; 80061; 84443

== ENCOUNTER 2025-05-14 16:00 | Outpatient (REF) | payer MEDICAID, SELFPAY ==
--- NOTE | 2025-05-14 15:30 | PAPFT_PTH ---
PATIENT: Ashleigh Paiz LOC: [facility] U#:[id number] AGE/SX: 59/F ROOM: RE05/14/[address]: Evi Delong MD : 1965 BED: DIS: 05/14/2025 SPEC #: [id number] RECD: 05/14/25 18:03 STATUS: ESTELLA ANITHA #: [id number] PINO: 05/14/25 15:[address]: Evi Delong DEPT: [facility] Cytology RECD BY: Renu Soto ENTERED: 05/14/25 18:04 SP TYPE: PAPFT MAVIS DR: Kiya Juan APRN Tissues: 1 - CX/ENDOCX FOR PAP SMEARS Procedures: PAP THIN PREP/[facility] Screening HPV DNA PROBE Comments: [id number] (HPV 16 & 18/45)
--- NOTE | 2025-05-14 15:35 | VUL_PTH ---
PATIENT: Ashleigh Paiz LOC: [facility] U#:[id number] AGE/SX: 59/F ROOM: RE05/14/[address]: Evi Delong MD : 1965 BED: DIS: 05/14/2025 SPEC #: [id number] RECD: 05/14/25 18:05 STATUS: ESTELLA WELSH #: [id number] PINO: 05/14/25 15:[address]: Evi Delong DEPT: Surgical Specimen RECD BY: Renu Soto ENTERED: 05/14/25 18:06 SP TYPE: VUL OTHR DR: Kiya Juan APRN Tissues: 1 - VULVA BIOPSY Procedures: GROSS AND MICRO LEVEL 4 Comments: [id number]
== END 2025-05-14 16:01 | disposition home or self-care (01) ==
LOC: LBN 16:00
PROVIDERS: PCP Nurse Practitioner Adult Health; Visit Provider Obstetrics & Gynecology
DX: Z12.4 Encounter for screening for malignant neoplasm of cervix (principal)
CPT/HCPCS: 88142; 88305; 87624